=== PATIENT | female | born 1980 | race Hispanic/Latino ===

== ENCOUNTER 2024-06-16 02:48 | Emergency (ER) | payer BC, SELFPAY ==
[2024-06-16 02:56] VITALS: BP 151/89
--- NOTE | 2024-06-16 04:29 | ED.GENMED ---
History of Present Illness
<RIMMA Helm - Last Filed: 06/16/24 06:49>
General
Chief Complaint: Headache
Source: patient
Exam Limitations: none
Time Seen by Provider: 06/16/24 03:54
Nursing documentation reviewed up to this point in time: agreed with
History of Present Illness
History of Present Illness:
Pt is a 43 yo F with PMH of HTN, GERD, cholecystectomy and hysterectomy who presents to the ED with GARCIA x 1 day. She states it began yesterday morning and progressively has gotten worse. She became worried when her BP at home measured 170/110. She
admits she did take her amlodipine yesterday morning. She states her GARCIA is a 7/10 and is constant. She notes it has a band-like distribution across her forehead. She admits to associated photophobia and mild nausea that have been constant since GARCIA
onset. She admits she tried Tylenol throughout the day yesterday for pain without relief. Last dose of Tylenol was 1000 mg at 01:00am today. She denies fever, fatigue, changes in vision, vomiting, chest pain, SOB, abdominal pain, LOC,
numbness/tingling in jaw or extremities x 4.
Past History
<RIMMA Helm - Last Filed: 06/16/24 06:49>
Past History
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
ED Past Surgical History: and Tonsilectomy
Social History
Tobacco: Non-smoker
Alcohol: None
Drug: None
Living: with family
Employment: Employed
Family History
Family History: Negative Diabetes, Hypertension or CAD
Review of Systems
<RIMMA Helm - Last Filed: 06/16/24 06:49>
Review of Systems
Allergies reviewed?: Yes
Constitutional: Denies fever, fatigue or chills
EENT: Denies sore throat or runny nose
Respiratory: Denies cough or trouble breathing
Cardiac: Denies chest pain or palpitations
ABD/GI: Reports nausea; Denies abdominal pain, vomiting or diarrhea
Neurological: Reports headache; Denies dizzy, weakness or numbness
Phy Exam
<RIMMA Helm - Last Filed: 06/16/24 06:49>
General Physical Exam
General Presentation: mild distress
General age: appears stated age
General Skin: warm and dry
General Habitus: normal
General Mental: alert
General Hydration: appears well hydrated
ENT Exam
ENT Exam: neck supple and normocephalic
Eye Exam
Eye Exam: PERRL and EOMI
Cardiovascular Exam
Cardiovascular Exam: regular rate/rhythm and no murmur
Pulmonary Exam
Pulmonary Exam: lungs clear and no respiratory distress
Neurological Exam
Neurological Exam: alert, oriented x3, no motor deficits and no sensory deficits
Course
<RIMMA Helm - Last Filed: 06/16/24 06:49>
Orders/Labs/Results
Orders:
Orders
06/16/24 05:19
Diphenhydramine [Benadryl] 25 mg IV NOW STA
Metoclopramide [Reglan] 10 mg IV NOW STA
06/16/24 05:20
CT Head W/o Iv Contrast Urgent
Comment:
Reason For Exam: acute headache
Vital Signs
Initial and Last Documented VS:
Initial Vital Signs
Temp Pulse Resp BP Pulse Ox
98.0 F 77 18 151/89 99
06/16/24 02:56 06/16/24 02:56 06/16/24 02:56 06/16/24 02:56 06/16/24 02:56
Last Documented Vital Signs
Temp Pulse Resp BP Pulse Ox
98.0 F 77 18 151/89 99
06/16/24 02:56 06/16/24 02:56 06/16/24 02:56 06/16/24 02:56 06/16/24 02:56
<Sangeeta Le DO - Last Filed: 06/16/24 07:31>
Orders/Labs/Results
Orders:
Orders
06/16/24 05:19
Diphenhydramine [Benadryl] 25 mg IV NOW STA
Metoclopramide [Reglan] 10 mg IV NOW STA
06/16/24 05:20
CT Head W/o Iv Contrast Urgent
Comment:
Reason For Exam: acute headache
Vital Signs
Initial and Last Documented VS:
Initial Vital Signs
Temp Pulse Resp BP Pulse Ox
98.0 F 77 18 151/89 99
06/16/24 02:56 06/16/24 02:56 06/16/24 02:56 06/16/24 02:56 06/16/24 02:56
Last Documented Vital Signs
Temp Pulse Resp BP Pulse Ox
98.0 F 77 18 151/89 99
06/16/24 02:56 06/16/24 02:56 06/16/24 02:56 06/16/24 02:56 06/16/24 02:56
<RIMMA Helm - Last Filed: 06/16/24 06:49>
MDM/Problems Addressed
Differential Diagnosis Includes:
headache, migraine, hypertensive headache
<RIMMA Helm - Last Filed: 06/16/24 06:49>
*Critical Care Note
Total Time (30-74mins, 75-104mins- exclusive of procedures): Not Applicable
<Sangeeta Le DO - Last Filed: 06/16/24 07:31>
*Radiology
Radiology exam reviewed: radiology read reviewed
*Pulse Oximetry
Patient hypoxic: no
<RIMMA Helm - Last Filed: 06/16/24 06:49>
Update Note
Update Note:
06/16/24 @ 6:48am: Pt states medication is 'helping a lot' and her pain 'has gone down a lot'; will continue to monitor
ED Attending Note
<RIMMA Helm - Last Filed: 06/16/24 06:49>
-
Portions of this chart may have been created with voice recognition software.� Occasional wrong word or��sound alike� substitutions may have occurred due to the inherent limitations of voice recognition software.
<Sangeeta Le DO - Last Filed: 06/16/24 07:31>
ED Attending Note
Patient seen and examined by attending physician: Yes
I performed the substantive portion of visit, reviewed & personally made and approve the management plan that is documented in note by myself or SPENSER.: Yes
ED Attending Note:
This is a 43-year-old woman with history of hypertension, chronically maintained on amlodipine who complains of generalized frontal headache that began yesterday morning shortly after waking up from sleep. Headache initially mild but has been
persistent, somewhat worsened throughout the day yesterday. Admits to intermittent mild nausea but no vomiting. Mild photophobia, no fever no chills, no neck pain, no congestion nor sore throat. No history of similar episodes of headache.
She took a dose of Tylenol at 1 AM without relief.
She does have history of pituitary microadenoma, incidental finding while undergoing fertility treatment in 2006. She had been maintained on medication and follow-up MRIs over number years showed no change in microadenoma. History has not required
medications for the past few years and states blood work has remained stable, unchanged.
GENERAL: 43-year-old woman appears her stated age, bright and alert, pleasant, appears in no acute distress. is accompanying.
EYE: pupils equal and reactive. Extraocular muscles intact. Discs are sharp bilaterally. Anicteric
NECK: Supple, nontender, no meningismus, no significant adenopathy.
ENT: posterior pharynx is clear, oral mucosa is moist. TM clear b/l, nares patent.
CARDIAC: Regular rate and rhythm. no murmur.
LUNGS: Clear breath sounds bilaterally, no acute respiratory distress, no wheezes/rales/rhonchi
ABDOMEN: Soft, nondistended, without focal tenderness, normoactive BS.
NEUROLOGICAL: Alert and oriented x3, no focal neuro deficits. Gait is aparicio and steady.
SKIN: Warm and dry, normal color, skin intact. No rash.
MUSCULOSKELETAL: No C/C/E. peripheral pulses are full and equal b/l. No palpable tenderness.
PSYCH: Normal and appropriate interaction.
Patient presents with acute frontal headache that began yesterday. No red flags in history nor exam, she denies maximum intensity at onset but more gradual throughout the day.
No associated fever nor neck pain. No focal neurodeficits. I suspect tension headache versus migraine.
She is noted to be mildly hypertensive
Which I suspect is related to pain. Blood pressure generally well-controlled.
As headache is new in onset, history of microadenoma will check CT of the head assess for potential mass, intracranial bleeding.
Will give an IV dose of Reglan and Benadryl and continue to observe.
07:00
CT of the head is unremarkable.
Patient notes complete relief of headache after Reglan.
Will discharge to home with recommendation for follow-up with PCP. Patient states she has a routine appointment already scheduled with her primary care physician for tomorrow.
Discharge Plan
Departure
Patient Disposition: Home (Routine Discharge)
Date of Disposition: 06/16/24
Time of Disposition: 07:05
Patient with high blood pressure during this ER visit?: No
Condition: Good
Discharge Problem:
Acute non intractable tension-type headache
Instructions: Tension Headache (DC), Home Headache Remedies
Prescriptions:
No Action
amlodipine 5 mg Tablet
5 mg PO DAILY
albuterol sulfate 90 mcg/actuation HFA aerosol inhaler
2 puff inhalation Q6H PRN (Reason: shortness of breath or wheezing) Qty: 8.5 0RF
prednisone 50 mg tablet
50 mg PO DAILY Qty: 4 0RF
epinephrine [EpiPen] 0.3 mg/0.3 mL auto-injector
0.3 mg IM .STAT PRN (Reason: anaphylaxis) Qty: 1 0RF
amlodipine 5 mg Tablet
5 mg PO DAILY
Referrals:
Chris Brown MD [Family Provider] - Keep scheduled appt
Interventions
Interventions:
*Risk Screen - Suicide Last Done: 06/16/24 06:18
*General Assessment Last Done: 06/16/24 02:56
*Neglect/Abuse Screening Last Done: 06/16/24 06:18
ED- Fall Risk Assessment Last Done: 06/16/24 06:18
*ED COVID-19 Vaccine History Last Done: 06/16/24 02:56
ED- Neurological Assessment Last Done: 06/16/24 06:18
Discharge Date and Time
Print Language: CAP[place]
[2024-06-16 06:18] VITALS: BMI 63.3
[2024-06-16] MEDS: REGLAN 10 MG IV (06:33)
[2024-06-16] MEDS: BENADRYL 25 MG IV (06:33)
[2024-06-16 07:25] VITALS: BP 141/77
== END 2024-06-16 07:27 | disposition home or self-care (01) ==
LOC: EMR 02:48
PROVIDERS: EMERGENCY PHYSICIAN Emergency Medicine; FAMILY PHYSICIAN Family Medicine
DX: G44.209 Tension-type headache, unspecified, not intractable (principal); R11.0 Nausea; I10 Essential (primary) hypertension; K21.9 Gastro-esophageal reflux disease without esophagitis; Z90.49 Acquired absence of other specified parts of digestive tract; Z91.041 Radiographic dye allergy status
CPT/HCPCS: 99284; 96374; 96375; 70450

== ENCOUNTER → 2024-08-22 08:06 | Outpatient (REF) | payer BC, SELFPAY | LOC: HWRAD 08:06 | PROVIDERS: ATTENDING PHYSICIAN Family Medicine | DX: N39.0 Urinary tract infection, site not specified (principal); R30.9 Painful micturition, unspecified | CPT/HCPCS: 76700 ==